=== PATIENT | male | born 1945 | race Caucasian/White ===

== ENCOUNTER 2018-08-20 22:48 | Inpatient (IN) | payer OTHER, BC ==
[~2018-08-20] VITALS: Ht 170.2 cm; Wt 83.1 kg
[2018-08-20 22:50] VITALS: Ht 170.2 cm; Wt 83.1 kg
[2018-08-20 23:18] LABS: BASOPHIL % 0.2 % (0-2); PLATELET COUNT 174 x10^3mcL (130-400)
[2018-08-20 23:28] LABS: CALCIUM 7.5 mg/dL (8.5-10.1); CARBON DIOXIDE 20.6 mmol/L (21-32); CHLORIDE SERUM 110 mmol/L (98-107); CREATININE SERUM 0.7 mg/dL (0.7-1.3); GLUCOSE SERUM 118 mg/dL (74-106); POTASSIUM SERUM 3.7 mmol/L (3.5-5.1); SODIUM SERUM 143 mmol/L (136-145)
[2018-08-20 23:32] LABS: ALKALINE PHOSPHATASE 255 U/L (46-116); ALT/SGPT 15 U/L (16-63); AST/SGOT 44 U/L (15-37); BILIRUBIN TOTAL 1.13 mg/dL (0.20-1.00)
[2018-08-20 23:33] LABS: ALBUMIN 1.6 g/dL (3.4-5.0); TOTAL PROTEIN, SERUM 4.9 g/dL (6.4-8.2)
[2018-08-20 23:38] LABS: RED CELL DISTRIBUTION WIDTH 25.4 % (11.5-14.5)
[2018-08-20] MEDS ORDERED: LOMOTIL1 TAB PO (23:46)
[2018-08-20] MEDS ORDERED: CLOPIDOGREL75 M1 PO (23:47)
[2018-08-20] MEDS ORDERED: PROCHLORPERAZIN10 MG PO (23:47)
[2018-08-20] MEDS ORDERED: POTASSIUM CHLO10 MEQ PO (23:47)
[2018-08-20] MEDS ORDERED: TAMSULOSIN HYD0.4 M1 PO (23:48)
[2018-08-20] MEDS ORDERED: LANSOPRAZOLE30 M2 PO (23:48)
[2018-08-20] MEDS ORDERED: CARVEDILOL3.125 M1 PO (23:48)
[2018-08-20] MEDS ORDERED: LIPI20 PO (23:49)
[2018-08-20] MEDS ORDERED: FINASTERIDE5 M1 PO (23:49)
[2018-08-20 23:55] LABS: rbc morphology (normal/abnorm) ABNORMAL (NORMAL)
[2018-08-20 23:56] LABS: acanthocyte (spur cell) 2+
[2018-08-21 02:46] LABS: MAGNESIUM 1.5 mg/dL (1.8-2.4); PHOSPHOROUS 2.8 mg/dL (2.5-4.9)
[2018-08-21 02:47] LABS: CHOLESTEROL/HDL RATIO 4.8
[2018-08-21 03:03] LABS: FREE T4 1.44 ng/dL (0.76-1.46); FREE THYROXINE INDEX 1.7 ug/dL (1.4-4.5); T4(THYROXINE) 4.9 ug/dL (4.7-13.3)
[2018-08-21 03:21] VITALS: BP 100/63
[2018-08-21 04:09] LABS: T3 TOTAL 0.59 ng/mL
[2018-08-21 05:30] VITALS: BP 86/51
[2018-08-21 09:39] VITALS: BP 96/58
[2018-08-21 13:42] VITALS: BP 81/47
== END 2018-08-21 19:45 | disposition expired | DRG 291 ==
LOC: ED 22:48 → DU 08-21 00:47
PROVIDERS: Emergency Medicine; ADMIT Internal Medicine
DX: I50.43 Acute on chronic combined systolic (congestive) and diastolic (congestive) heart failure (principal); E43 Unspecified severe protein-calorie malnutrition; J96.21 Acute and chronic respiratory failure with hypoxia; C16.9 Malignant neoplasm of stomach, unspecified; C78.7 Secondary malignant neoplasm of liver and intrahepatic bile duct; I11.0 Hypertensive heart disease with heart failure; N40.0 Benign prostatic hyperplasia without lower urinary tract symptoms; E83.42 Hypomagnesemia; E80.6 Other disorders of bilirubin metabolism; E02 Subclinical iodine-deficiency hypothyroidism; E83.51 Hypocalcemia; Z66 Do not resuscitate; Z51.5 Encounter for palliative care; Z68.29 Body mass index [BMI] 29.0-29.9, adult
CPT/HCPCS: 83880; 84439; J2270; J7030; Q0092